=== PATIENT | female | born 1985 | race African-American/Black ===

== ENCOUNTER 2016-12-30 15:28 | Emergency (ER) | payer OTHER ==
[~2016-12-30 15:28] MED LIST: AMOXICILLIN PO; AMOXICILLIN500 M1 PO; BACTRIM DS TABL1 TA1 PO; BENTYL10 MG PO; CELEXA PO; CIPRO PO; CIPRO250 MG PO; DECADRON PO; DIFLUCAN PO; EC-NAPROSYN500 MG PO; FAMOTIDINE PO; FLEXERIL PO; FLEXERIL10 M1 PO; IBUPROFEN PO; KEFLEX500 M1 PO; LORTAB 5/500 TA1 TA1 PO; MEDROL DOSEPAK4 MG PO; MEDROL PO; MEDROL4 MG/DOSE- PO; MOTRIN400 MG PO; NO MEDICATIONS; PERCOCET 5-3251 TAB PO; PHENERGAN12.5 M1 PR; PREDNISONE10 MG PO; PRENATAL1 TA1 PO; PYRIDIUM PO; PYRIDIUM100 MG PO; ROBAXIN500 MG PO; RONDEC-DM SYRU120 ML PO; SEROQUEL PO; SEROQUEL25 MG; SEROQUEL25 MG PO; VOLTAREN50 MG PO; VOLTAREN75 MG PO; XYLOCAINE20 ML 2% V EXT; ZOFRAN ODT4 MG PO
[2016-12-30] MEDS ORDERED: HUMALOG100 UNIT/2 (15:30)
[2016-12-30] MEDS ORDERED: TRESIBA FL100 UNIT/1 (15:30)
[2016-12-30] MEDS ORDERED: ALBUTEROL17 GM (15:30)
[2016-12-30] MEDS ORDERED: DULERA 100 MCG/13 GM (15:30)
== END 2016-12-30 16:34 | disposition home or self-care (01) ==
LOC: SED 15:28
DX: M76.61 Achilles tendinitis, right leg (principal); E11.9 Type 2 diabetes mellitus without complications; J45.909 Unspecified asthma, uncomplicated; Z79.4 Long term (current) use of insulin
CPT/HCPCS: 29540; 96372; 99283; J1885